=== PATIENT | female | born 1965 | race African-American/Black ===

== ENCOUNTER 2017-01-29 10:33 | Emergency (ER) | payer OTHER ==
[~2017-01-29 10:33] MED LIST: ACETAMINOPHEN PO; AMBIEN10 MG; DICYCLOMINE HCL20 MG PO; DOXYCYCLINE PO; K-DUR20 ME1 PO; LORTAB 10-5001 EACH PO; LORTAB 5/500 TA1 TA1 PO; LORTAB 7.5-5001 TAB PO; MIRALAX255 GM PO; PHENERGAN PO; PHENERGAN PR; PHENERGAN12.5 MG PO; PHENERGAN25 M1 PO; PHENERGAN25 MG PO; TYLOX 5/500 CAP1 CAP PO; TYLOX1 CAP 5/50 PO; ULTRAM PO; VICODIN 5/1 TAB 5/50 PO
== END 2017-01-29 13:05 | disposition home or self-care (01) ==
LOC: CFTX 10:33 → CED 10:33 → CFTX 12:20
DX: M76.62 Achilles tendinitis, left leg (principal); M76.61 Achilles tendinitis, right leg; I10 Essential (primary) hypertension; D64.9 Anemia, unspecified; F41.9 Anxiety disorder, unspecified; Z90.710 Acquired absence of both cervix and uterus; Z88.6 Allergy status to analgesic agent
CPT/HCPCS: 99283